=== PATIENT | male | born 1955 | race Hispanic/Latino ===

== ENCOUNTER 2021-04-13 22:05 | Inpatient (IN) | payer OTHER ==
[~2021-04-13] VITALS: Ht 134.6 cm; Wt 60.6 kg
[2021-04-13 22:38] VITALS: BP 131/96
[2021-04-13] MEDS ORDERED: MORPHINE 4 MG SYG IVP ONE (23:30)
[2021-04-13] MEDS ORDERED: 0.9%NACL 1000ML 1,000 ML IV ONE (23:30)
[2021-04-13 23:47] LABS: BASOPHILS % (AUTO) 0.4 % (0.0-5.0); EOSINOPHILS % (AUTO) 0.6 % (0.0-8.0); HEMATOCRIT 46.3 % (42-54); LYMPHOCYTES % (AUTO) 20.5 % (21.0-51.0); MEAN CORPUSCULAR HEMOGLOBIN 29.3 pg (27.0-33.0); MEAN CORPUSCULAR HGB CONC 34.3 g/dL (32.0-36.0); MEAN CORPUSCULAR VOLUME 85.3 fL (79-99); MONOCYTES % (AUTO) 8.6 % (3.0-13.0); NEUTROPHILS % (AUTO) 68.8 % (40.0-77.0); PLATELET COUNT (AUTO) 338 K/uL (130-400); RED BLOOD CELL COUNT(AUTO) 5.43 MIL/uL (4.50-6.20); RED CELL DISTRIBUTION WIDTH 12.2 % (11.0-15.5); WHITE BLOOD COUNT (AUTO) 7.1 K/uL (4.8-10.8)
[2021-04-13 23:55] LABS: CREATININE 1.2 mg/dL (0.5-1.5); POTASSIUM 5.2 mmol/L (3.5-5.1)
[2021-04-13 23:59] LABS: ALBUMIN 4.1 g/dL (3.5-5.0); BILIRUBIN,TOTAL 0.8 mg/dL (0.2-1.0); TOTAL PROTEIN, SERUM 8.3 g/dL (6.0-8.3)
[2021-04-14] VITALS (9 sets, daily range): BP systolic 103–134; BP diastolic 68–90
[2021-04-14] MEDS ORDERED: ONDANSETRON 4MG INJ IVP ONE (00:01)
[2021-04-14] MEDS ORDERED: IOHEXOL 350 MG/ML 100ML INFUS..BTL IV ONE (00:21)
[2021-04-14 01:17] LABS: APPEARANCE,URINE Cloudy (CLEAR); BILIRUBIN,URINE Small (NEGATIVE); COLOR,URINE Dark Yellow (YELLOW); GLUCOSE, URINE (UA) Negative (NEGATIVE); KETONES,URINE 15 mg/dL (NEGATIVE); LEUKOCYTE ESTERASE ,URINE Trace (NEGATIVE); NITRATE,URINE Negative (NEGATIVE); OCCULT BLOOD,URINE Negative (NEGATIVE); PH,URINE 5.5 (5.0-8.0); PROTEIN,URINE POS 1+ mg/dL (NEGATIVE)
[2021-04-14 02:07] LABS: BACTERIA,URINE None Seen /HPF (None Seen); SQUAMOUS EPITHELIAL CELL,UR Few /HPF (0-2); WBC,URINE 0-1 /HPF (0-1)
[2021-04-14 02:08] LABS: CALCIUM OXALATE CRYSTALS,UR Few /LPF (None Seen); MUCUS,URINE Few LPF (None Seen)
[2021-04-14] MEDS ORDERED: ONDANSETRON 4MG INJ IV PRN (10:30)
[2021-04-14 11:11] LABS: HEMOGLOBIN A1C 5.6 % (4.0-6.0)
[2021-04-14] MEDS: LACTATED RINGERS 1000ML 1,000 ML IV SCH ×2 (11:42→20:30)
[2021-04-14] MEDS: ZOSYN 3.375GM+NS 50ML 50 ML IV SCH ×2 (14:03→21:32)
[2021-04-14] MEDS ORDERED: PEG 3350/NA SULF,BICARB,CL/KCL 4000 ML SOLN ONE (17:04)
[2021-04-14] MEDS ORDERED: PEG 3350/NA SULF,BICARB,CL/KCL 4000 ML SOLN PO ONE (17:09)
[2021-04-14] MEDS ORDERED: FAMOTIDINE 20MG VIAL IV SCH (21:00)
[2021-04-14] MEDS: FAMOTIDINE 20MG VIAL IV SCH (21:32)
[2021-04-15] VITALS (13 sets, daily range): BP systolic 91–138; BP diastolic 60–81
[2021-04-15] MEDS: ZOSYN 3.375GM+NS 50ML 50 ML IV SCH ×3 (04:15→19:59)
[2021-04-15] MEDS: LACTATED RINGERS 1000ML 1,000 ML IV SCH ×2 (05:41→16:59)
[2021-04-15] MEDS: FAMOTIDINE 20MG VIAL IV SCH ×2 (09:00→20:00)
[2021-04-15] MEDS ORDERED: PROPOFOL 10 MG/ML 20ML VIAL IV ONE (12:34)
[2021-04-15] MEDS ORDERED: GLYCOPYRROLATE 1 MG/5 ML SYRINGE ONE (12:47)
[2021-04-15 18:02] LABS: HEMATOCRIT 36.5 % (42-54)
[2021-04-16 00:36] VITALS: BP 96/64
[2021-04-16 00:45] LABS: HEMATOCRIT 34.7 % (42-54)
[2021-04-16] MEDS: LACTATED RINGERS 1000ML 1,000 ML IV SCH ×2 (02:30→20:11)
[2021-04-16] MEDS: ZOSYN 3.375GM+NS 50ML 50 ML IV SCH ×3 (04:08→20:11)
[2021-04-16 06:14] LABS: BASOPHILS % (AUTO) 0.6 % (0.0-5.0); EOSINOPHILS % (AUTO) 3.5 % (0.0-8.0); HEMATOCRIT 35.4 % (42-54); LYMPHOCYTES % (AUTO) 18.6 % (21.0-51.0); MEAN CORPUSCULAR HGB CONC 34.5 g/dL (32.0-36.0); MEAN CORPUSCULAR VOLUME 84.1 fL (79-99); MONOCYTES % (AUTO) 9.3 % (3.0-13.0); NEUTROPHILS % (AUTO) 67.2 % (40.0-77.0); PLATELET COUNT (AUTO) 261 K/uL (130-400); RED BLOOD CELL COUNT(AUTO) 4.21 MIL/uL (4.50-6.20); RED CELL DISTRIBUTION WIDTH 11.9 % (11.0-15.5); WHITE BLOOD COUNT (AUTO) 6.4 K/uL (4.8-10.8)
[2021-04-16 06:25] LABS: INR 1.05 (0.85-1.15); PROTHROMBIN TIME 11.4 SEC (9.6-11.6)
[2021-04-16 06:27] LABS: PARTIAL THROMBOPLASTIN TIME 27.2 SEC (26.3-35.5)
[2021-04-16 06:34] LABS: CREATININE 1.1 mg/dL (0.5-1.5); MAGNESIUM 1.9 mg/dL (1.80-2.40); PHOSPHORUS 3.8 mg/dL (2.5-4.9); POTASSIUM 4.1 mmol/L (3.5-5.1)
[2021-04-16 08:00] VITALS: BP 118/73
[2021-04-16] MEDS: FAMOTIDINE 20MG VIAL IV SCH ×2 (09:48→20:11)
[2021-04-16 11:53] VITALS: BP 119/73
[2021-04-16 16:00] VITALS: BP 120/72
[2021-04-16 20:00] VITALS: BP 121/78
[2021-04-17 00:03] VITALS: BP 110/74
[2021-04-17] MEDS: LACTATED RINGERS 1000ML 1,000 ML IV SCH ×2 (01:45→20:56)
[2021-04-17 03:42] VITALS: BP 119/72
[2021-04-17] MEDS: ZOSYN 3.375GM+NS 50ML 50 ML IV SCH ×3 (04:25→20:56)
[2021-04-17 05:45] LABS: BASOPHILS % (AUTO) 0.8 % (0.0-5.0); EOSINOPHILS % (AUTO) 4.6 % (0.0-8.0); HEMATOCRIT 37.4 % (42-54); LYMPHOCYTES % (AUTO) 21.7 % (21.0-51.0); MEAN CORPUSCULAR HEMOGLOBIN 28.6 pg (27.0-33.0); MEAN CORPUSCULAR HGB CONC 33.4 g/dL (32.0-36.0); MEAN CORPUSCULAR VOLUME 85.6 fL (79-99); MONOCYTES % (AUTO) 10.2 % (3.0-13.0); NEUTROPHILS % (AUTO) 61.6 % (40.0-77.0); PLATELET COUNT (AUTO) 249 K/uL (130-400); RED BLOOD CELL COUNT(AUTO) 4.37 MIL/uL (4.50-6.20); RED CELL DISTRIBUTION WIDTH 12.1 % (11.0-15.5); WHITE BLOOD COUNT (AUTO) 6.4 K/uL (4.8-10.8)
[2021-04-17 06:30] LABS: ALBUMIN 2.8 g/dL (3.5-5.0); BILIRUBIN,TOTAL 0.4 mg/dL (0.2-1.0); CREATININE 1.1 mg/dL (0.5-1.5); POTASSIUM 3.6 mmol/L (3.5-5.1); TOTAL PROTEIN, SERUM 5.9 g/dL (6.0-8.3)
[2021-04-17 08:00] VITALS: BP 123/77
[2021-04-17] MEDS: FAMOTIDINE 20MG VIAL IV SCH ×2 (08:59→20:56)
[2021-04-17 12:00] VITALS: BP 128/79
[2021-04-17 16:00] VITALS: BP 131/77
[2021-04-17 20:00] VITALS: BP 134/83
[2021-04-18] VITALS (7 sets, daily range): BP systolic 113–149; BP diastolic 73–88
[2021-04-18] MEDS: ZOSYN 3.375GM+NS 50ML 50 ML IV SCH ×3 (04:29→19:55)
[2021-04-18 06:00] LABS: BASOPHILS % (AUTO) 1.2 % (0.0-5.0); EOSINOPHILS % (AUTO) 5.3 % (0.0-8.0); HEMATOCRIT 35.8 % (42-54); MEAN CORPUSCULAR HEMOGLOBIN 28.7 pg (27.0-33.0); MEAN CORPUSCULAR HGB CONC 33.8 g/dL (32.0-36.0); MONOCYTES % (AUTO) 9.8 % (3.0-13.0); NEUTROPHILS % (AUTO) 62.7 % (40.0-77.0); PLATELET COUNT (AUTO) 250 K/uL (130-400); RED BLOOD CELL COUNT(AUTO) 4.21 MIL/uL (4.50-6.20); RED CELL DISTRIBUTION WIDTH 12.2 % (11.0-15.5); WHITE BLOOD COUNT (AUTO) 5.8 K/uL (4.8-10.8)
[2021-04-18 06:18] LABS: ALBUMIN 2.7 g/dL (3.5-5.0); BILIRUBIN,TOTAL 0.5 mg/dL (0.2-1.0); CREATININE 1.1 mg/dL (0.5-1.5); POTASSIUM 3.3 mmol/L (3.5-5.1); TOTAL PROTEIN, SERUM 5.9 g/dL (6.0-8.3)
[2021-04-18] MEDS ORDERED: POTASSIUM CHLORIDE 20MEQ/100ML 100 ML IV PRN (06:30)
[2021-04-18] MEDS ORDERED: LIDOCAINE HCL-MPF 1% 2ML VIAL IV PRN (06:30)
[2021-04-18] MEDS: FAMOTIDINE 20MG VIAL IV SCH ×2 (09:02→19:53)
[2021-04-18] MEDS ORDERED: POTASSIUM CHLORIDE 10MEQ SR TAB PO SCH (13:30)
[2021-04-18] MEDS: LACTATED RINGERS 1000ML 1,000 ML IV SCH (19:59)
[2021-04-19] VITALS (7 sets, daily range): BP systolic 102–147; BP diastolic 67–91
[2021-04-19] MEDS: ZOSYN 3.375GM+NS 50ML 50 ML IV SCH ×3 (05:44→20:02)
[2021-04-19 05:47] LABS: BASOPHILS % (AUTO) 1.2 % (0.0-5.0); EOSINOPHILS % (AUTO) 6.9 % (0.0-8.0); HEMATOCRIT 38.4 % (42-54); LYMPHOCYTES % (AUTO) 20.1 % (21.0-51.0); MEAN CORPUSCULAR HEMOGLOBIN 28.7 pg (27.0-33.0); MEAN CORPUSCULAR HGB CONC 33.6 g/dL (32.0-36.0); MEAN CORPUSCULAR VOLUME 85.5 fL (79-99); MONOCYTES % (AUTO) 10.6 % (3.0-13.0); NEUTROPHILS % (AUTO) 60.2 % (40.0-77.0); PLATELET COUNT (AUTO) 255 K/uL (130-400); RED BLOOD CELL COUNT(AUTO) 4.49 MIL/uL (4.50-6.20); RED CELL DISTRIBUTION WIDTH 12.3 % (11.0-15.5); WHITE BLOOD COUNT (AUTO) 6.7 K/uL (4.8-10.8)
[2021-04-19 06:04] LABS: ALBUMIN 2.9 g/dL (3.5-5.0); BILIRUBIN,TOTAL 0.5 mg/dL (0.2-1.0); CREATININE 1.2 mg/dL (0.5-1.5); POTASSIUM 3.8 mmol/L (3.5-5.1); TOTAL PROTEIN, SERUM 6.2 g/dL (6.0-8.3)
[2021-04-19] MEDS: FAMOTIDINE 20MG VIAL IV SCH ×2 (10:07→20:02)
[2021-04-19] MEDS: LACTATED RINGERS 1000ML 1,000 ML IV SCH (11:30)
[2021-04-20 03:33] VITALS: BP 107/70
[2021-04-20] MEDS: ZOSYN 3.375GM+NS 50ML 50 ML IV SCH ×3 (04:46→20:24)
[2021-04-20 06:38] LABS: EOSINOPHILS % (AUTO) 6.5 % (0.0-8.0); HEMATOCRIT 39.1 % (42-54); LYMPHOCYTES % (AUTO) 17.4 % (21.0-51.0); MEAN CORPUSCULAR HEMOGLOBIN 28.7 pg (27.0-33.0); MEAN CORPUSCULAR HGB CONC 33.5 g/dL (32.0-36.0); MEAN CORPUSCULAR VOLUME 85.6 fL (79-99); MONOCYTES % (AUTO) 8.8 % (3.0-13.0); NEUTROPHILS % (AUTO) 65.3 % (40.0-77.0); PLATELET COUNT (AUTO) 250 K/uL (130-400); RED BLOOD CELL COUNT(AUTO) 4.57 MIL/uL (4.50-6.20); RED CELL DISTRIBUTION WIDTH 12.3 % (11.0-15.5); WHITE BLOOD COUNT (AUTO) 7.3 K/uL (4.8-10.8)
[2021-04-20 06:40] LABS: CREATININE 1.1 mg/dL (0.5-1.5); MAGNESIUM 1.9 mg/dL (1.80-2.40); POTASSIUM 3.8 mmol/L (3.5-5.1)
[2021-04-20 07:30] VITALS: BP 100/71
[2021-04-20] MEDS: FAMOTIDINE 20MG VIAL IV SCH ×2 (08:40→20:24)
[2021-04-20 11:00] VITALS: BP 130/83
[2021-04-20] MEDS: LACTATED RINGERS 1000ML 1,000 ML IV SCH (12:30)
[2021-04-20] MEDS: ERYTHROMYCIN BASE 500 MG TABLET PO SCH ×3 (13:47→22:28)
[2021-04-20] MEDS: NEOMYCIN SULFATE 500 MG TAB PO SCH ×3 (13:47→22:28)
[2021-04-20 16:00] VITALS: BP 128/83
[2021-04-20 20:02] VITALS: BP 121/80
[2021-04-20 23:33] VITALS: BP 124/71
[2021-04-21 03:39] VITALS: BP 112/76
[2021-04-21] MEDS: ZOSYN 3.375GM+NS 50ML 50 ML IV SCH ×3 (05:11→21:38)
[2021-04-21 05:27] LABS: EOSINOPHILS % (AUTO) 4.3 % (0.0-8.0); HEMATOCRIT 41.4 % (42-54); LYMPHOCYTES % (AUTO) 22.1 % (21.0-51.0); MEAN CORPUSCULAR HEMOGLOBIN 28.9 pg (27.0-33.0); MEAN CORPUSCULAR HGB CONC 34.1 g/dL (32.0-36.0); MEAN CORPUSCULAR VOLUME 84.8 fL (79-99); MONOCYTES % (AUTO) 8.8 % (3.0-13.0); NEUTROPHILS % (AUTO) 62.7 % (40.0-77.0); PLATELET COUNT (AUTO) 253 K/uL (130-400); RED BLOOD CELL COUNT(AUTO) 4.88 MIL/uL (4.50-6.20); RED CELL DISTRIBUTION WIDTH 12.4 % (11.0-15.5); WHITE BLOOD COUNT (AUTO) 8.1 K/uL (4.8-10.8)
[2021-04-21 05:43] LABS: ALBUMIN 3.3 g/dL (3.5-5.0); BILIRUBIN,TOTAL 0.6 mg/dL (0.2-1.0); CREATININE 1.2 mg/dL (0.5-1.5); POTASSIUM 3.6 mmol/L (3.5-5.1); TOTAL PROTEIN, SERUM 6.8 g/dL (6.0-8.3)
[2021-04-21 07:42] VITALS: BP 105/68
[2021-04-21] MEDS: FAMOTIDINE 20MG VIAL IV SCH ×2 (08:44→21:38)
[2021-04-21 11:00] VITALS: BP 112/70
[2021-04-21] MEDS: LACTATED RINGERS 1000ML 1,000 ML IV SCH (13:25)
[2021-04-21] MEDS: ERYTHROMYCIN BASE 500 MG TABLET PO SCH ×3 (18:46→23:03)
[2021-04-21] MEDS: NEOMYCIN SULFATE 500 MG TAB PO SCH ×3 (18:47→23:03)
[2021-04-21 20:00] VITALS: BP 119/75
[2021-04-22] VITALS (26 sets, daily range): BP systolic 111–141; BP diastolic 72–90
[2021-04-22 04:56] LABS: BASOPHILS % (AUTO) 1.1 % (0.0-5.0); EOSINOPHILS % (AUTO) 4.2 % (0.0-8.0); HEMATOCRIT 40.2 % (42-54); LYMPHOCYTES % (AUTO) 19.3 % (21.0-51.0); MEAN CORPUSCULAR HEMOGLOBIN 28.9 pg (27.0-33.0); MEAN CORPUSCULAR HGB CONC 34.3 g/dL (32.0-36.0); MEAN CORPUSCULAR VOLUME 84.1 fL (79-99); MONOCYTES % (AUTO) 10.7 % (3.0-13.0); NEUTROPHILS % (AUTO) 63.8 % (40.0-77.0); PLATELET COUNT (AUTO) 267 K/uL (130-400); RED BLOOD CELL COUNT(AUTO) 4.78 MIL/uL (4.50-6.20); RED CELL DISTRIBUTION WIDTH 12.4 % (11.0-15.5); WHITE BLOOD COUNT (AUTO) 7.4 K/uL (4.8-10.8)
[2021-04-22 05:05] LABS: CREATININE 1.2 mg/dL (0.5-1.5); POTASSIUM 3.9 mmol/L (3.5-5.1)
[2021-04-22] MEDS: ZOSYN 3.375GM+NS 50ML 50 ML IV SCH ×3 (05:25→20:38)
[2021-04-22] MEDS: FAMOTIDINE 20MG VIAL IV SCH ×2 (08:59→20:38)
[2021-04-22] MEDS: LACTATED RINGERS 1000ML 1,000 ML IV SCH ×2 (11:05→19:24)
[2021-04-22] MEDS ORDERED: PROPOFOL 10 MG/ML 20ML VIAL IV ONE (14:26)
[2021-04-22] MEDS ORDERED: FENTANYL CITRATE PF 50 MCG/1 ML 2ML VIAL ONE ×2 (14:27→15:53)
[2021-04-22] MEDS ORDERED: ONDANSETRON 4MG INJ ONE (14:27)
[2021-04-22] MEDS ORDERED: MIDAZOLAM HCL 1 MG/ML 2ML VIAL ONE (14:27)
[2021-04-22] MEDS ORDERED: ROCURONIUM 10MG/1ML SYR 10 MG/ML ML ONE ×3 (14:27→17:47)
[2021-04-22] MEDS ORDERED: BUPIVACAINE/PF 0.25% 30ML VIAL IJ ONE (15:11)
[2021-04-22] MEDS ORDERED: LIDOCAINE HCL 1% 20 ML VIAL ONE (15:11)
[2021-04-22] MEDS ORDERED: GLYCOPYRROLATE 1 MG/5 ML SYRINGE ONE ×2 (15:16→19:00)
[2021-04-22 15:58] LABS: ABG BASE EXCESS -4.3 mmol/L (-2.0-3.0); ABG HCO3 21.6 mmol/L (21.0-28.0); ABG OXYGEN SATURATION 99.4 % (95.0-99.0); ABG PCO2 43 mmHg (35-48)
[2021-04-22] MEDS ORDERED: SODIUM BICARB 8.4% 50ML SYRINGE ONE (16:01)
[2021-04-22 17:41] LABS: ABG BASE EXCESS 0.5 mmol/L (-2.0-3.0); ABG HCO3 24.4 mmol/L (21.0-28.0); ABG PCO2 37 mmHg (35-48)
[2021-04-22] MEDS ORDERED: NEOSTIGMINE 5MG/5ML SYR IV ONE (19:01)
[2021-04-22] MEDS ORDERED: MEPERIDINE-PF 25 MG/ML SYG ONE (19:43)
[2021-04-23] VITALS (8 sets, daily range): BP systolic 114–132; BP diastolic 74–89
[2021-04-23] MEDS: ZOSYN 3.375GM+NS 50ML 50 ML IV SCH ×3 (04:10→19:57)
[2021-04-23] MEDS: LACTATED RINGERS 1000ML 1,000 ML IV SCH (04:16)
[2021-04-23] MEDS ORDERED: MORPHINE 4 MG SYG ONE (05:42)
[2021-04-23] MEDS ORDERED: MORPHINE 4 MG SYG IM PRN (06:00)
[2021-04-23 08:06] LABS: MEAN CORPUSCULAR HEMOGLOBIN 29.2 pg (27.0-33.0); MEAN CORPUSCULAR HGB CONC 34.5 g/dL (32.0-36.0); MEAN CORPUSCULAR VOLUME 84.8 fL (79-99); RED BLOOD CELL COUNT(AUTO) 4.48 MIL/uL (4.50-6.20); RED CELL DISTRIBUTION WIDTH 12.6 % (11.0-15.5); WHITE BLOOD COUNT (AUTO) 14.6 K/uL (4.8-10.8)
[2021-04-23 08:20] LABS: ALBUMIN 2.7 g/dL (3.5-5.0); BILIRUBIN,TOTAL 0.7 mg/dL (0.2-1.0); TOTAL PROTEIN, SERUM 5.6 g/dL (6.0-8.3)
[2021-04-23] MEDS: FAMOTIDINE 20MG VIAL IV SCH ×2 (10:01→19:57)
[2021-04-23] MEDS: MORPHINE 2 MG SYG IVP PRN ×2 (19:57→23:52)
[2021-04-24] MEDS: MORPHINE 2 MG SYG IVP PRN ×2 (03:48→12:03)
[2021-04-24 04:10] VITALS: BP 117/81
[2021-04-24] MEDS: ZOSYN 3.375GM+NS 50ML 50 ML IV SCH ×3 (04:21→19:57)
[2021-04-24 04:44] LABS: HEMATOCRIT 34.7 % (42-54); MEAN CORPUSCULAR HEMOGLOBIN 28.6 pg (27.0-33.0); MEAN CORPUSCULAR HGB CONC 33.4 g/dL (32.0-36.0); MEAN CORPUSCULAR VOLUME 85.7 fL (79-99); RED BLOOD CELL COUNT(AUTO) 4.05 MIL/uL (4.50-6.20); RED CELL DISTRIBUTION WIDTH 12.7 % (11.0-15.5); WHITE BLOOD COUNT (AUTO) 11.4 K/uL (4.8-10.8)
[2021-04-24 06:13] LABS: ALBUMIN 2.5 g/dL (3.5-5.0); BILIRUBIN,TOTAL 0.8 mg/dL (0.2-1.0); POTASSIUM 3.7 mmol/L (3.5-5.1); TOTAL PROTEIN, SERUM 5.7 g/dL (6.0-8.3)
[2021-04-24 07:32] VITALS: BP 125/74
[2021-04-24] MEDS: LACTATED RINGERS 1000ML 1,000 ML IV SCH (10:50)
[2021-04-24] MEDS: FAMOTIDINE 20MG VIAL IV SCH ×2 (10:50→19:57)
[2021-04-24 11:09] VITALS: BP 129/81
[2021-04-24 15:40] VITALS: BP 125/76
[2021-04-24 20:00] VITALS: BP 127/87
[2021-04-24 23:50] VITALS: BP 121/85
[2021-04-25 04:00] VITALS: BP 136/84
[2021-04-25] MEDS: ZOSYN 3.375GM+NS 50ML 50 ML IV SCH ×3 (04:15→21:29)
[2021-04-25 07:43] VITALS: BP 117/66
[2021-04-25] MEDS: MORPHINE 2 MG SYG IVP PRN ×2 (08:45→21:34)
[2021-04-25] MEDS: FAMOTIDINE 20MG VIAL IV SCH ×2 (08:45→21:29)
[2021-04-25 10:58] VITALS: BP_SYST 125; BP_SYST 132; BP_DIAS 75; BP_DIAS 84
[2021-04-25] MEDS: LACTATED RINGERS 1000ML 1,000 ML IV SCH (11:05)
[2021-04-25 15:40] VITALS: BP 121/62
[2021-04-25 20:20] VITALS: BP 133/85
[2021-04-25 23:47] VITALS: BP 118/76
[2021-04-26 04:26] LABS: HEMATOCRIT 32.2 % (42-54); MEAN CORPUSCULAR HEMOGLOBIN 28.3 pg (27.0-33.0); MEAN CORPUSCULAR HGB CONC 33.5 g/dL (32.0-36.0); MEAN CORPUSCULAR VOLUME 84.5 fL (79-99); RED BLOOD CELL COUNT(AUTO) 3.81 MIL/uL (4.50-6.20); RED CELL DISTRIBUTION WIDTH 12.4 % (11.0-15.5); WHITE BLOOD COUNT (AUTO) 6.1 K/uL (4.8-10.8)
[2021-04-26 04:38] LABS: CREATININE 0.8 mg/dL (0.5-1.5); POTASSIUM 3.1 mmol/L (3.5-5.1)
[2021-04-26] MEDS: ZOSYN 3.375GM+NS 50ML 50 ML IV SCH ×3 (06:07→19:31)
[2021-04-26 07:46] VITALS: BP 118/78
[2021-04-26] MEDS: FAMOTIDINE 20MG VIAL IV SCH ×2 (09:10→19:31)
[2021-04-26] MEDS: LACTATED RINGERS 1000ML 1,000 ML IV SCH (11:05)
[2021-04-26 12:00] VITALS: BP 124/77
[2021-04-26 16:36] VITALS: BP 130/88
[2021-04-26 20:00] VITALS: BP 129/84
[2021-04-27] VITALS (11 sets, daily range): BP systolic 121–146; BP diastolic 60–95
[2021-04-27] MEDS: ZOSYN 3.375GM+NS 50ML 50 ML IV SCH ×3 (05:00→19:30)
[2021-04-27 08:18] LABS: INR 1.02 (0.85-1.15); PROTHROMBIN TIME 11.1 SEC (9.6-11.6)
[2021-04-27 08:19] LABS: PARTIAL THROMBOPLASTIN TIME 27.6 SEC (26.3-35.5)
[2021-04-27] MEDS: FAMOTIDINE 20MG VIAL IV SCH ×2 (09:30→19:30)
[2021-04-27] MEDS: LACTATED RINGERS 1000ML 1,000 ML IV SCH (11:05)
[2021-04-27] MEDS ORDERED: FENTANYL CITRATE PF 50 MCG/1 ML 2ML VIAL ONE (12:52)
[2021-04-27] MEDS ORDERED: LIDOCAINE HCL 1% MDV 50ML VIAL ONE (12:52)
[2021-04-27] MEDS ORDERED: HEPARIN 1,000 UNIT VIAL ONE (12:52)
[2021-04-27] MEDS ORDERED: OCTYL 2-CYANOACRYLATE 1 EACH TP ONE (13:51)
[2021-04-28] VITALS: BP 119/82
[2021-04-28] MEDS: ZOSYN 3.375GM+NS 50ML 50 ML IV SCH (03:34)
[2021-04-28 04:00] VITALS: BP 113/80
[2021-04-28 05:03] LABS: BASOPHILS % (AUTO) 0.5 % (0.0-5.0); EOSINOPHILS % (AUTO) 11.3 % (0.0-8.0); LYMPHOCYTES % (AUTO) 16.9 % (21.0-51.0); MEAN CORPUSCULAR HEMOGLOBIN 28.5 pg (27.0-33.0); MEAN CORPUSCULAR HGB CONC 34.2 g/dL (32.0-36.0); MEAN CORPUSCULAR VOLUME 83.3 fL (79-99); MONOCYTES % (AUTO) 9.3 % (3.0-13.0); NEUTROPHILS % (AUTO) 61.1 % (40.0-77.0); PLATELET COUNT (AUTO) 238 K/uL (130-400); RED BLOOD CELL COUNT(AUTO) 3.96 MIL/uL (4.50-6.20); RED CELL DISTRIBUTION WIDTH 12.6 % (11.0-15.5); WHITE BLOOD COUNT (AUTO) 6.5 K/uL (4.8-10.8)
[2021-04-28 08:46] VITALS: BP 123/86
[2021-04-28] MEDS: FAMOTIDINE 20MG VIAL IV SCH (08:56)
== END 2021-04-28 12:00 | disposition home or self-care (01) | DRG 330 ==
LOC: EDH 22:05 → EDHIP 22:06 → EDBD 22:06 → 3CH 04-14 12:33
PROVIDERS: ADMIT Internal Medicine; ATTEND Internal Medicine
PROC: 0DBL8ZX Excision of Transverse Colon, Via Natural or Artificial Opening Endoscopic, Diagnostic (ICD-10-PCS; 2021-04-15)
PROC: 3E0H8KZ Introduction of Other Diagnostic Substance into Lower GI, Via Natural or Artificial Opening Endoscopic (ICD-10-PCS; 2021-04-15)
PROC: 02H633Z Insertion of Infusion Device into Right Atrium, Percutaneous Approach (ICD-10-PCS; 2021-04-22)
PROC: B5181ZA Fluoroscopy of Superior Vena Cava using Low Osmolar Contrast, Guidance (ICD-10-PCS; 2021-04-22)
PROC: B548ZZA Ultrasonography of Superior Vena Cava, Guidance (ICD-10-PCS; 2021-04-22)
PROC: 0DBF0ZZ Excision of Right Large Intestine, Open Approach (ICD-10-PCS; principal; 2021-04-22 14:45)
PROC: 0JH63XZ Insertion of Tunneled Vascular Access Device into Chest Subcutaneous Tissue and Fascia, Percutaneous Approach (ICD-10-PCS; 2021-04-22 14:45)
DX: C18.3 Malignant neoplasm of hepatic flexure (principal); C78.7 Secondary malignant neoplasm of liver and intrahepatic bile duct; C18.2 Malignant neoplasm of ascending colon; C19 Malignant neoplasm of rectosigmoid junction; C34.90 Malignant neoplasm of unspecified part of unspecified bronchus or lung; E46 Unspecified protein-calorie malnutrition; K56.691 Other complete intestinal obstruction; E87.5 Hyperkalemia; E87.6 Hypokalemia; Z20.822 Contact with and (suspected) exposure to COVID-19; Z85.038 Personal history of other malignant neoplasm of large intestine; Z68.33 Body mass index [BMI] 33.0-33.9, adult
CPT/HCPCS: 36415; 36561; 45380; 45381; 74177; 77001; 80048; 80053; 81001; 82270; 82378; 82435; 82803; 82947; 83036; 83605; 83690; 83735; 84100; 84132; 84145; 84295; 85014; 85018; 85025; 85027; 85610; 85730; 86316; 86850; 86900; 86901; 87635; 88309; 93005; 97039; A4606; G0378; J1644; J2175; J2250; J2270; J2405; J2543; J2704; J2710; J3010; J3490; J7030; J7040; J7120; Q9967

== ENCOUNTER 2022-12-14 13:10 | Inpatient (IN) | payer OTHER ==
[~2022-12-14] VITALS: Ht 162.6 cm; Wt 58.0 kg
[2022-12-14 14:17] LABS: INR 0.97 (0.85-1.15); PROTHROMBIN TIME 10.6 SEC (9.6-11.6)
[2022-12-14 14:19] LABS: PARTIAL THROMBOPLASTIN TIME 28.4 SEC (26.3-35.5)
[2022-12-14] MEDS ORDERED: ACETAMINOPHEN 500 MG TABLET PO ONE (14:30)
[2022-12-14] MEDS ORDERED: 0.9%NACL 1000ML 1,776 ML IV ONE (14:30)
[2022-12-14 14:38] LABS: ALBUMIN 2.4 g/dL (3.5-5.0)
[2022-12-14 14:45] LABS: POTASSIUM 3.8 mmol/L (3.5-5.1)
[2022-12-14 14:50] LABS: BASOPHILS % (AUTO) 0.4 % (0.0-5.0); EOSINOPHILS % (AUTO) 0.3 % (0.0-8.0); HEMATOCRIT 43.2 % (42-54); LYMPHOCYTES % (AUTO) 2.7 % (21.0-51.0); MEAN CORPUSCULAR HEMOGLOBIN 28.2 pg (27.0-33.0); MEAN CORPUSCULAR HGB CONC 33.1 g/dL (32.0-36.0); MEAN CORPUSCULAR VOLUME 85.2 fL (79-99); MONOCYTES % (AUTO) 2.2 % (3.0-13.0); NEUTROPHILS % (AUTO) 93.4 % (40.0-77.0); PLATELET COUNT (AUTO) 224 K/uL (130-400); RED BLOOD CELL COUNT(AUTO) 5.07 MIL/uL (4.50-6.20); RED CELL DISTRIBUTION WIDTH 15.5 % (11.0-15.5); WHITE BLOOD COUNT (AUTO) 12.8 K/uL (4.8-10.8)
[2022-12-14 14:56] LABS: TOTAL PROTEIN, SERUM 8.6 g/dL (6.0-8.3)
[2022-12-14] MEDS ORDERED: VANCOMYCIN KIT 1 GM/250 ML IV.KIT IV ONE (16:00)
[2022-12-14] MEDS ORDERED: 0.9%NACL 1000ML 2,040 ML IV ONE (16:00)
[2022-12-14] MEDS ORDERED: ZOSYN 3.375GM +NS 50ML IVPB ONE (16:00)
[2022-12-14] MEDS ORDERED: PANTOPRAZOLE 40 MG/VIAL IVP ONE (17:30)
[2022-12-14] MEDS ORDERED: PANTOPRAZOLE 40MG INJ 80 MG in 0.9%NACL 100ML 100 ML IVP SCH (17:30)
[2022-12-14] MEDS ORDERED: VANCOMYCIN PROTOCOL PER PHARMACY IV SCH (18:00)
[2022-12-14] MEDS ORDERED: OCTREOTIDE ACETATE 100 MCG/ML AMP IV ONE (18:00)
[2022-12-14] MEDS ORDERED: OCTREOTIDE ACETATE 1,250 MCG in 0.9% NACL 250ML 250 ML IV SCH (18:00)
[2022-12-14] MEDS ORDERED: PHARMACY COMMUNICATION MISC SCH (18:30)
[2022-12-14 18:53] LABS: APPEARANCE,URINE CLEAR (CLEAR); BILIRUBIN,URINE NEGATIVE (NEGATIVE); COLOR,URINE LIGHT-YELLOW (YELLOW); GLUCOSE, URINE (UA) NEGATIVE (NEGATIVE); KETONES,URINE NEGATIVE (NEGATIVE); LEUKOCYTE ESTERASE ,URINE NEGATIVE Leu/uL (NEGATIVE); NITRATE,URINE NEGATIVE (NEGATIVE); OCCULT BLOOD,URINE NEGATIVE (NEGATIVE); PH,URINE 6.5 (5.0-8.0); PROTEIN,URINE NEGATIVE (NEGATIVE); UROBILINOGEN,URINE 0.2 mg/dL (0.2-1.0)
[2022-12-14 18:55] LABS: RBC,URINE 0-1 /HPF (0-1)
[2022-12-14] MEDS ORDERED: OCTREOTIDE ACETATE 200 MCG/ML 5 ML VIAL ONE (19:41)
[2022-12-14] MEDS: LACTATED RINGERS 1000ML 1,000 ML IV SCH (19:46)
[2022-12-14 22:35] VITALS: BP 126/85
[2022-12-14] MEDS ORDERED: 0.9%NACL 50ML IV SCH (23:00)
[2022-12-14] MEDS: ZOSYN 3.375GM +NS 50ML IVPB SCH (23:35)
[2022-12-14 23:55] LABS: HEMATOCRIT 36.3 % (42-54)
[2022-12-15] MEDS ORDERED: REGO40TA PO (01:27)
[2022-12-15] MEDS ORDERED: HYDR-4060 PO (01:27)
[2022-12-15 03:04] VITALS: BP 146/95
[2022-12-15] MEDS: LACTATED RINGERS 1000ML 1,000 ML IV SCH ×2 (03:30→15:08)
[2022-12-15 04:07] LABS: BASOPHILS % (AUTO) 0.7 % (0.0-5.0); EOSINOPHILS % (AUTO) 1.1 % (0.0-8.0); HEMATOCRIT 39.3 % (42-54); LYMPHOCYTES % (AUTO) 4.7 % (21.0-51.0); MEAN CORPUSCULAR HEMOGLOBIN 28.1 pg (27.0-33.0); MEAN CORPUSCULAR HGB CONC 32.6 g/dL (32.0-36.0); MEAN CORPUSCULAR VOLUME 86.2 fL (79-99); MONOCYTES % (AUTO) 3.5 % (3.0-13.0); PLATELET COUNT (AUTO) 156 K/uL (130-400); RED BLOOD CELL COUNT(AUTO) 4.56 MIL/uL (4.50-6.20); RED CELL DISTRIBUTION WIDTH 15.6 % (11.0-15.5); WHITE BLOOD COUNT (AUTO) 10.6 K/uL (4.8-10.8)
[2022-12-15 04:21] LABS: HEMOGLOBIN A1C 5.2 % (4.0-6.0)
[2022-12-15 04:37] LABS: CRP QUANTITATIVE 116.2 mg/L (0.00-9.0); POTASSIUM 4.2 mmol/L (3.5-5.1); THYROID STIMULATING HORMONE 1.28 uIU/mL (0.36-3.74)
[2022-12-15] MEDS ORDERED: PANTOPRAZOLE 40 MG/VIAL ONE (04:37)
[2022-12-15 07:04] VITALS: BP 129/83
[2022-12-15] MEDS: ZOSYN 3.375GM +NS 50ML IVPB SCH ×2 (08:02→15:11)
[2022-12-15 08:06] LABS: ALBUMIN 1.7 g/dL (3.5-5.0); BILIRUBIN,DIRECT 1.7 mg/dL (0.0-0.3); TOTAL PROTEIN, SERUM 6.9 g/dL (6.0-8.3)
[2022-12-15] MEDS: VANCOMYCIN 1G/250ML KIT 250 ML IV SCH ×2 (09:12→20:21)
[2022-12-15 10:52] LABS: HEMATOCRIT 39.8 % (42-54)
[2022-12-15 11:12] VITALS: BP 113/62
[2022-12-15 16:06] VITALS: BP 138/85
[2022-12-15 18:58] VITALS: BP 139/89
[2022-12-15] MEDS: PANTOPRAZOLE 40 MG/VIAL IVP SCH (20:21)
[2022-12-15 23:08] VITALS: BP 147/92
[2022-12-16] MEDS: ZOSYN 3.375GM +NS 50ML IVPB SCH ×4 (00:02→23:18)
[2022-12-16 03:59] VITALS: BP 141/94
[2022-12-16 06:56] LABS: HEMATOCRIT 37.7 % (42-54); MEAN CORPUSCULAR HGB CONC 32.4 g/dL (32.0-36.0); MEAN CORPUSCULAR VOLUME 86.7 fL (79-99); RED BLOOD CELL COUNT(AUTO) 4.35 MIL/uL (4.50-6.20); RED CELL DISTRIBUTION WIDTH 15.9 % (11.0-15.5)
[2022-12-16 07:26] LABS: ALBUMIN 1.4 g/dL (3.5-5.0); BILIRUBIN,DIRECT 1.3 mg/dL (0.0-0.3); MAGNESIUM 1.6 mg/dL (1.80-2.40); POTASSIUM 3.8 mmol/L (3.5-5.1); TOTAL PROTEIN, SERUM 6.1 g/dL (6.0-8.3)
[2022-12-16 08:06] VITALS: BP 138/89
[2022-12-16] MEDS ORDERED: MAGNESIUM 2GM PREMIX 50ML 50 ML IV SCH (09:00)
[2022-12-16] MEDS: PANTOPRAZOLE 40 MG/VIAL IVP SCH ×2 (09:16→21:19)
[2022-12-16] MEDS: LACTATED RINGERS 1000ML 1,000 ML IV SCH ×2 (09:16→09:17)
[2022-12-16] MEDS: VANCOMYCIN 1G/250ML KIT 250 ML IV SCH ×2 (09:16→21:19)
[2022-12-16 12:10] VITALS: BP 142/87
[2022-12-16 16:25] VITALS: BP 145/89
[2022-12-16 19:09] VITALS: BP 158/110
[2022-12-17 00:09] VITALS: BP 138/86
[2022-12-17] MEDS: LACTATED RINGERS 1000ML 1,000 ML IV SCH ×2 (01:23→05:30)
[2022-12-17 03:09] VITALS: BP 126/82
[2022-12-17 03:52] LABS: HEMATOCRIT 35.9 % (42-54); MEAN CORPUSCULAR HEMOGLOBIN 27.9 pg (27.0-33.0); MEAN CORPUSCULAR HGB CONC 32.3 g/dL (32.0-36.0); MEAN CORPUSCULAR VOLUME 86.3 fL (79-99); RED BLOOD CELL COUNT(AUTO) 4.16 MIL/uL (4.50-6.20); RED CELL DISTRIBUTION WIDTH 15.7 % (11.0-15.5); WHITE BLOOD COUNT (AUTO) 8.1 K/uL (4.8-10.8)
[2022-12-17 04:06] LABS: ALBUMIN 1.4 g/dL (3.5-5.0); BILIRUBIN,DIRECT 1.4 mg/dL (0.0-0.3); CREATININE 0.9 mg/dL (0.5-1.5); MAGNESIUM 1.9 mg/dL (1.80-2.40); POTASSIUM 3.6 mmol/L (3.5-5.1); TOTAL PROTEIN, SERUM 6.1 g/dL (6.0-8.3)
[2022-12-17 08:03] VITALS: BP 142/89
[2022-12-17] MEDS: VANCOMYCIN 1G/250ML KIT 250 ML IV SCH (10:05)
[2022-12-17] MEDS: ZOSYN 3.375GM +NS 50ML IVPB SCH ×2 (10:05→15:00)
[2022-12-17] MEDS: PANTOPRAZOLE 40 MG/VIAL IVP SCH (10:06)
[2022-12-17 12:34] VITALS: BP 153/91
== END 2022-12-17 16:30 | disposition home or self-care (01) | DRG 872 ==
LOC: EDH 13:10 → EDHIP 13:11 → 2DH 21:46
PROVIDERS: ADMIT Internal Medicine; ATTEND Internal Medicine
DX: A41.9 Sepsis, unspecified organism (principal); E87.20 Acidosis, unspecified; R64 Cachexia; E46 Unspecified protein-calorie malnutrition; E87.1 Hypo-osmolality and hyponatremia; K92.2 Gastrointestinal hemorrhage, unspecified; E88.09 Other disorders of plasma-protein metabolism, not elsewhere classified; E83.42 Hypomagnesemia; Z85.038 Personal history of other malignant neoplasm of large intestine; Z90.49 Acquired absence of other specified parts of digestive tract; Z68.22 Body mass index [BMI] 22.0-22.9, adult
CPT/HCPCS: 36415; 71045; 74176; 76705; 80048; 80053; 80076; 80202; 81001; 82270; 82550; 83036; 83605; 83735; 84145; 84443; 84484; 85014; 85018; 85025; 85027; 85610; 85730; 86140; 87040; 87088; 93005; C9113; G0378; J2354; J2543; J3370; J3475; J7050